=== PATIENT | female | born 1990 | race African-American/Black ===

== ENCOUNTER 2018-05-23 14:39 | Emergency (ER) | payer SELFPAY ==
[2018-05-23 14:44] VITALS: BP 109/58; PULSE 80; TEMP 98.6; BMI 28.8
--- NOTE | 2018-05-23 15:06 | PDOC ---
History of Present Illness - General Chief Complaint: Suture/Staple Removal(Here) Stated Complaint: Suture/Staple Removal(Here) Time Seen by Provider: 05/23/18 15:02 - History of Present Illness Initial Comments: 28-year-old female presents for suture removal from the left fourth finger sutures were placed over 10 days ago. She's had no complications since suture placement. 05/23/18 15:05 Past History - Past Medical History Allergies/Adverse Reactions: Allergies Allergy/AdvReac Type Severity Reaction Status Date / Time No Known Allergies Allergy Unverified 05/23/18 14:41 Home Medications: Ambulatory Orders NK [No Known Home Medication] 05/05/18 Asthma: No Cancer: No Cardiac Disorders: No COPD: No DVT: No Diabetes: No HTN: No Seizures: No Thyroid Disease: No - Immunization History Immunization Up to Date: Yes (2013) - Suicide/Smoking/Psychosocial Hx Smoking History: Never smoked Have you smoked in the past 12 months: No Information on smoking cessation initiated: No Hx Alcohol Use: No Drug/Substance Use Hx: No Substance Use Type: None Hx Substance Use Treatment: No Review of Systems - Review of Systems All Other Systems: Reviewed and Negative *Physical Exam - Vital Signs Last Vital Signs Temp Pulse Resp BP Pulse Ox 98.6 F 80 18 109/58 100 05/23/18 14:41 05/23/18 14:41 05/23/18 14:41 05/23/18 14:41 05/23/18 14:41 - Physical Exam Comments: [address] and a neurovascularly intact left fourth finger. Without gross sensorimotor deficits. In color and temperature is normal wound is well- healed. With eschar. 05/23/18 15:05 Medical Decision Making - Medical Decision Making 3 sutures were removed from the radial aspect of the tip of the left fourth finger without complications. 05/23/18 15:04 *DC/Admit/Observation/Transfer Diagnosis at time of Disposition: Visit for suture removal - Discharge Dispostion Disposition: HOME Condition at time of disposition: Stable Decision to Admit order: No - Referrals Referrals: Mary Pablo MD [Primary Care Provider] - Cresencio Booker MD [Staff Physician] - - Patient Instructions Printed Discharge Instructions: DI for Suture Removal Additional Instructions: Return to the emergency room should he develop any swelling pain redness or drainage from the area otherwise keep the area clean and dry with soap and water do not submerge it in a swimming pool sauna or hot tub until it becomes a scar. Follow-up with your primary care physician for further evaluation and treatment options or hand surgery should you need to. - Post Discharge Activity
[2018-05-27] MEDS ORDERED: IBUPROFEN 400 MG TABLET (FP) PO ONE (19:00)
== END 2018-05-23 15:08 | disposition home or self-care (01) ==
LOC: JERFT 14:39
DX: Z48.817 Encounter for surgical aftercare following surgery on the skin and subcutaneous tissue (principal); Z48.02 Encounter for removal of sutures
CPT/HCPCS: 99281-25

== ENCOUNTER 2018-12-15 18:50 | Emergency (ER) | payer BC ==
[2018-12-15 18:56] VITALS: BMI 29.7
[2018-12-15] MEDS ORDERED: SODIUM CHLORIDE 1,000 ML IV STA (19:40)
--- NOTE | 2018-12-15 19:48 | PDOC ---
Attending Attestation - HPI HPI: 12/15/18 20:17 The patient is a 28 year old female, with no significant past medical history of who presents to the emergency department with 1 day of vomiting, diarrhea and nausea accompanied with diffuse abdominal pain. Patient notes her diffuse lower abdominal pain started last night after she had pizza. The patient states she has 2 episodes of nbnb vomiting, she describes as frothy. The patient notes her daughter is sick at home and has been vomiting. The patient denies chest pain, shortness of breath, headache or dizziness. The patient denies fever, chills, nausea,or constipation. Allergies: NKDA Past surgical history:None reported Social history: 2 glasses of wine occasionally - Physicial Exam PE: 12/15/18 20:18 GENERAL: Awake, alert, and fully oriented, in no acute distress HEAD: No signs of trauma EYES: PERRLA, EOMI, sclera anicteric, conjunctiva clear ENT: Auricles normal inspection, hearing grossly normal, nares patent, oropharynx clear without exudates. Moist mucosa NECK: Normal ROM, supple, no lymphadenopathy, JVD, or masses LUNGS: Breath sounds equal, clear to auscultation bilaterally. No wheezes, and no crackles HEART: Regular rate and rhythm, normal S1 and S2, no murmurs, rubs or gallops ABDOMEN:(+) diffuse abdominal tenderness. (+) epigastric tenderness. (+) guarding, (+) minimal rebound. No masses EXTREMITIES: Normal range of motion, no edema. No clubbing or cyanosis. No cords, erythema, or tenderness NEUROLOGICAL: Cranial nerves II through XII grossly intact. Normal speech, normal gait SKIN: Warm, Dry, normal turgor, no rashes or lesions noted. <Elvira Jay - Last Filed: 12/15/18 20:17> - Resident Resident Name: Belinda Barclay - ED Attending Attestation I have performed the following: I have examined & evaluated the patient, The case was reviewed & discussed with the resident, I agree w/resident's findings & plan - Medical Decision Making 12/15/18 20:11 Pt is warm to the touch. She is not tachycardic. She has hyperactive gassy abd sounds. She has no flank pain. She has clear lungs. Pt has normal HEENT. No suprapubic tenderness. I will reeval her after 1L bolus and tylenol bolus. She hasn't had anythong for pain. She has been drinking tea all day. 12/15/18 20:57 Labs are normal; potassium is a bit low. Pt is getting hydrated. Once she is no longer nauseous or vomiting we will give 20 mEq PO potassium. 12/15/18 21:42 Pt's labs are normal; however she continues to have abd pain. So she will be sent for a dry abd/pelvis CT scan 12/15/18 21:54 Pt was given morphine for her abd discomfort; now with vomiting; she is still receiving the 1L bag saline; also we will rx with zofran 12/15/18 22:53 Referring Physician: JOVAN HAINES Patient Name: SYLVAIN HERNANDEZ THIS IS A PRELIMINARY REPORT FROM [facility] DATE OF SERVICE: 2018-12-15 22:21:31 IMAGES: [id number] EXAM: ABDOMEN \T\ PELVIS CT WITH CONTR History: 28-year-old female with diffuse abdominal pain Comparison: None Procedure: CT scan abdomen and pelvis, dated December 15, 2018 . Axial images obtained followed by coronal and sagittal reconstructions. Intravenous contrast utilized, 99 mL Omnipaque . Findings: The liver, spleen, pancreas, adrenal glands and kidneys unremarkable. Gallbladder gallbladder fossa normal in appearance. No ureteral or bladder abnormalities noted. Rectum and perirectal space unremarkable. Terminal ileum normal in appearance. Appendix not visualized. Small bowel loops are nondilated and fluid-filled. Cecum and right side of the colon also fluid-filled. No large or small bowel inflammatory changes evident. Small indeterminate mesenteric lymph nodes present within the central mesentery. Abdominal aorta/branch vessels/IVC normal configuration. Uterus anteverted in position. Follicular change bilateral ovaries. Prominent pelvic vessels noted the left side with the left gonadal vein opacified and patent. The right gonadal vein is not opacified; however does not appear enlarged or suggest adjacent inflammatory changes. The right ovary is normal in configuration. Impression: 1. Appendix not visualized. 2. Terminal ileum normal in appearance. Small bowel and right side colonic findings may suggest an enteritis. No evidence of tract obstruction or inflammatory change. 3. No adnexal masses appreciated. Prominent pelvic vasculature left-sided of the pelvis with opacification of the left gonadal vein. The right-sided gonadal vein is not opacified however this may be related to the timing of the examination. There are no additional findings to suggest gonadal vein thrombosis. 12/16/18 04:29 Pt feels better and wants to go home. <Vani Pate - Last Filed: 12/16/18 04:29> Attestations - Attestations 12/15/18 20:20 Documentation prepared by Elvira Jay, acting as center medical and lab director for Vani Pate MD <Elvira Jay - Last Filed: 12/15/18 20:17>
[2018-12-15] MEDS ORDERED: FAMOTIDINE 20 MG/50 ML IVPB 20 MG/50 ML MG IVPB ONE ×2 (19:56→20:24)
[2018-12-15] MEDS ORDERED: ACETAMINOPHEN 1000 MG/100 ML VIAL (NON FORMULARY) IVPB ONE (19:56)
--- NOTE | 2018-12-15 20:05 | PDOC ---
History of Present Illness - General Chief Complaint: Vomiting/Diarrhea Stated Complaint: ABD PAINS/VOMITTING Time Seen by Provider: 12/15/18 19:39 History Source: Patient Exam Limitations: No Limitations - History of Present Illness Initial Comments: 12/15/18 20:00 Pt is a previously healthy 28yo F presenting to ED with complaints of n/v/d x 1 day with diffuse abdominal pain. Pt states that yesterday she had pizza and afterward she started to have diffuse abdominal pain. Pt says today is when the vomiting and diarrhea started. She had 2 episodes of nbnb emesis which she describes as "froth" and nonbloody diarrhea x6-7 times. She feels lightheaded and states that the pain is in the lower abdomen and feels like a cramp. Her daughter is also sick at home with vomiting. She denies recent travel, antibiotic use, fevers, chills, chest pain, sob, vaginal bleeding, malodorous discharge, urinary symptoms, flank pain. LMP 1 month ago. PMH: none PSH: none Meds: none Allergies: nkda Social: drinks 2 glasses of wine occasionally Past History - Past Medical History Allergies/Adverse Reactions: Allergies Allergy/AdvReac Type Severity Reaction Status Date / Time No Known Allergies Allergy Unverified 12/15/18 18:55 Home Medications: Ambulatory Orders NK [No Known Home Medication] 05/05/18 Asthma: No Cancer: No Cardiac Disorders: No COPD: No DVT: No Diabetes: No HTN: No Seizures: No Thyroid Disease: No - Immunization History Immunization Up to Date: Yes (2013) - Suicide/Smoking/Psychosocial Hx Smoking History: Never smoked Have you smoked in the past 12 months: No Hx Alcohol Use: No Drug/Substance Use Hx: No Substance Use Type: None Hx Substance Use Treatment: No Review of Systems - Review of Systems Constitutional: No: Chills, Fever, Weakness HEENTM: No: Symptoms Reported Respiratory: No: Cough, Shortness of Breath Cardiac (ROS): Yes: Lightheadedness. No: Chest Pain, Palpitations, Syncope ABD/GI: Yes: Diarrhea, Nausea, Vomiting, Abdominal cramping. No: Blood Streaked Bowels, Tarry Stools : No: Burning, Dysuria, Hematuria Musculoskeletal: No: Back Pain, Muscle Pain, Muscle Weakness Integumentary: No: Symptoms Reported Neurological: No: Headache, Numbness, Tingling *Physical Exam - Vital Signs Last Vital Signs Temp Pulse Resp BP Pulse Ox 99.6 F 81 18 109/67 98 12/15/18 18:53 12/15/18 18:53 12/15/18 18:53 12/15/18 18:53 12/15/18 18:53 - Physical Exam General Appearance: Yes: Appropriately Dressed, Moderate Distress, Obese HEENT: positive: EOMI, STEVIE, Other (moist mucus membranes) Neck: positive: Trachea midline, Supple. negative: Lymphadenopathy (R), Lymphadenopathy (L) Respiratory/Chest: positive: Lungs Clear, Normal Breath Sounds. negative: Crackles, Rales, Rhonchi, Stridor Cardiovascular: positive: Regular Rhythm, Regular Rate, S1, S2. negative: Edema , JVD, Murmur Vascular Pulses: Carotid (R): 2+, Carotid (L): 2+, Dorsalis-Pedis (R): 2+, Doralis-Pedis (L): 2+ Gastrointestinal/Abdominal: positive: Normal Bowel Sounds, Soft, Tenderness ( diffuse abdominal tenderness greatest in epigastrum. ). negative: Guarding, Rebound, Hernia Musculoskeletal: negative: CVA Tenderness Extremity: positive: Normal Capillary Refill, Pelvis Stable. negative: Swelling , Calf Tenderness Integumentary: positive: Normal Color, Dry, Warm Neurologic: positive: assistant guest services manager II-XII NML intact, Fully Oriented, Alert, Normal Mood/ Affect, Normal Response, Motor Strength 5/5 Moderate Sedation - Procedure Monitoring Vital Signs: Procedure Monitoring Vital Signs Temperature 99.6 F 12/15/18 18:53 Pulse Rate 81 12/15/18 18:53 Respiratory Rate 18 12/15/18 18:53 Blood Pressure 109/67 12/15/18 18:53 O2 Sat by Pulse Oximetry (%) 98 12/15/18 18:53 ED Treatment Course - LABORATORY CBC & Chemistry Diagram: 12/15/18 19:54 12/15/18 19:54 Medical Decision Making - Medical Decision Making 12/15/18 20:04 Pt is a previously healthy 28yo F presenting to ED with complaints of n/v/d x 1 day with diffuse abdominal pain. Pt states that yesterday she had pizza and afterward she started to have diffuse abdominal pain. Pt says today is when the vomiting and diarrhea started. She had 2 episodes of nbnb emesis which she describes as "froth" and nonbloody diarrhea x6-7 times. She feels lightheaded and states that the pain is in the lower abdomen and feels like a cramp. Her daughter is also sick at home with vomiting. She denies recent travel, antibiotic use, fevers, chills, chest pain, sob, vaginal bleeding, malodorous discharge, urinary symptoms, flank pain. LMP 1 month ago. Vitals: wnl PE: diffuse abdominal tenderness greatest in epigastric 12/15/18 21:49 labs wnl. No white count. K 3.3 Pt still diffusely tender. Will give 2mg IV morphine and CTAP 12/15/18 21:58 Pt vomited after morphine. Will give zofran however pt refused. 12/15/18 22:56 CT: 1. Appendix not visualized. 2. Terminal ileum normal in appearance. Small bowel and right side colonic findings may suggest an enteritis. No evidence of tract obstruction or inflammatory change. 3. No adnexal masses appreciated. Prominent pelvic vasculature left-sided of the pelvis with opacification of the left gonadal vein. The right-sided gonadal vein is not opacified however this may be related to the timing of the examination. There are no additional findings to suggest gonadal vein thrombosis 12/15/18 23:34 Pt refusing more fluids and potassium. Wants to be DC. Will DC home. Given return precautions. *DC/Admit/Observation/Transfer Diagnosis at time of Disposition: Vomiting Qualifiers: Vomiting type: unspecified Vomiting Intractability: unspecified Nausea presence : with nausea Qualified Code(s): R11.2 - Nausea with vomiting, unspecified Diarrhea Qualifiers: Diarrhea type: unspecified type Qualified Code(s): R19.7 - Diarrhea, unspecified Abdominal pain Qualifiers: Abdominal location: unspecified location Qualified Code(s): R10.9 - Unspecified abdominal pain - Discharge Dispostion Disposition: HOME Decision to Admit order: No - Referrals - Patient Instructions Printed Discharge Instructions: Diarrhea, DI for Abdominal Pain-Adult, DI for Vomiting -- Adult Additional Instructions: You were seen in the emergency room today for abdominal pain, vomiting and diarrhea. The lab tests are normal. You most likely have a viral infection causing your symptoms. It is important to keep yourself hydrated. Please drink lots of fluids, like water or Gatorade. Try not to eat foods just yet. Stick to a liquid diet and then move to solid foods as tolerated. Try to stay away from alcohol, acidic, spicy and fried foods. Come back to the emergency room if pain gets worse and/or moves to the lower right part of your abdomen, you cannot tolerate liquids, there is blood in the vomit or stool, you develop fever or if any new concerning symptom develops. Thank you - Post Discharge Activity Forms/Work/School Notes: Back to Work
[2018-12-15 20:06] LABS: BASO % 0.5 % (0-2.0); EOS % 0.6 % (0-4.5); HEMATOCRIT 40.3 % (32.4-45.2); LYMPH % 16.9 % (8-40); MCH 30.8 pg (25.7-33.7); MCHC 34.7 g/dl (32.0-36.0); MEAN CELL VOLUME 88.7 fl (80-96); MEAN PLT VOLUME 9.1 fl (7.5-11.1); MONO % 11.4 % (3.8-10.2); NEUT % 70.6 % (42.8-82.8); PLATELET COUNT 208 K/MM3 (134-434); RBC 4.54 M/mm3 (3.60-5.2); RDW 13.7 % (11.6-15.6); WHITE BLOOD COUNT 4.1 K/mm3 (4.0-10.0)
[2018-12-15] MEDS ORDERED: ACETAMINOPHEN INJECTION 100 ML IVPB ONE (20:24)
[2018-12-15 20:31] LABS: ALBUMIN 3.6 g/dl (3.4-5.0); ALK PHOS 53 U/L (45-117); ANION GAP 9 MMOL/L (8-16); BILIRUBIN,TOTAL 0.8 mg/dL (0.2-1); BLOOD UREA NITROGEN 15 mg/dL (7-18); CALCIUM 8.8 mg/dL (8.5-10.1); CHLORIDE 107 mmol/L (98-107); CO2 21 mmol/L (21-32); CREATININE 0.7 mg/dL (0.55-1.3); GLUCOSE,RANDOM 99 mg/dL (74-106); LIPASE 129 U/L (73-393); POTASSIUM 3.3 mmol/L (3.5-5.1); SGOT/AST 15 U/L (15-37); SGPT/ALT 17 U/L (13-61); SODIUM 137 mmol/L (136-145); TOT PROT 6.7 g/dl (6.4-8.2)
[2018-12-15] MEDS ORDERED: POTASSIUM CHLORIDE TABS 20 MEQ TABLET.ER (FP) PO ONE ×2 (21:41→23:11)
[2018-12-15] MEDS ORDERED: morphine CARPU-JECT 4 MG/1 ML DISP.SYRIN IVPUSH ONE (21:42)
[2018-12-15] MEDS ORDERED: MORPHINE SULFATE 2 MG/ML VIAL ONE (21:46)
[2018-12-15] MEDS ORDERED: ONDANSETRON 4 MG/2 ML VIAL IVPB ONE (21:51)
[2018-12-15] MEDS ORDERED: ONDANSETRON 4 MG/2 ML VIAL ONE (21:52)
[2018-12-15 22:45] VITALS: BP 114/67; PULSE 85; TEMP 98.1
[2018-12-15] MEDS ORDERED: D5-NS + 20 MEQ KCL - 20 MEQ/1,000 ML INFUS.BAG IV SCH (23:00)
[2018-12-15] MEDS ORDERED: DEXTROSE 5%-LACTATED RINGERS 1,000 ML IV SCH (23:15)
== END 2018-12-15 23:45 | disposition home or self-care (01) ==
LOC: JER 18:50
PROC: 3E0337Z Introduction of Electrolytic and Water Balance Substance into Peripheral Vein, Percutaneous Approach (ICD-10-PCS; principal; 2018-12-15)
PROC: 3E033GC Introduction of Other Therapeutic Substance into Peripheral Vein, Percutaneous Approach (ICD-10-PCS; 2018-12-15)
PROC: 3E033NZ Introduction of Analgesics, Hypnotics, Sedatives into Peripheral Vein, Percutaneous Approach (ICD-10-PCS; 2018-12-15)
PROC: 3E033NZ Introduction of Analgesics, Hypnotics, Sedatives into Peripheral Vein, Percutaneous Approach (ICD-10-PCS; 2018-12-15)
DX: R10.84 Generalized abdominal pain (principal); R11.2 Nausea with vomiting, unspecified; R19.7 Diarrhea, unspecified; E87.6 Hypokalemia
CPT/HCPCS: 36415; 74177-TC; 80053; 83690; 84703; 85025; 99283-25; J0131; J7030

== ENCOUNTER 2019-04-04 19:25 | Emergency (ER) | payer SELFPAY, OTHER | END 2019-04-05 02:01 | disposition home or self-care (01) | LOC: JER 04-05 02:01 | PROC: 3E0234Z Introduction of Serum, Toxoid and Vaccine into Muscle, Percutaneous Approach (ICD-10-PCS; principal; 2019-04-04) | DX: O26.891 Other specified pregnancy related conditions, first trimester (principal); O03.4 Incomplete spontaneous abortion without complication; O02.1 Missed abortion; Z3A.00 Weeks of gestation of pregnancy not specified ==

== ENCOUNTER 2020-01-16 09:27 | Emergency (ER) | payer BC ==
[2020-01-16 09:37] VITALS: BMI 33.5
--- NOTE | 2020-01-16 10:08 | PDOC ---
History of Present Illness - General Chief Complaint: Nausea/Vomiting Stated Complaint: VOMITING Time Seen by Provider: 01/16/20 10:05 - History of Present Illness Initial Comments: 01/16/20 11:31 29 y/o F no significant medical hx, preseting with abdominal cramping pain with associated nausea and vomiting since yesterday. She reports symptoms began last night. She ate some chicken with rice and a fruit smoothie a few hours before symptoms began. Her step-daughter has been sick with similiar symptoms last weekend. she endorses nausea, vomiting, watery diarrhea, urinary hesitancy denies: vaginal bleeding, discharge, bloody stools, fevers, chills, hematuria, LMP 12/29/2019 Past History - Past Medical History Allergies/Adverse Reactions: Allergies Allergy/AdvReac Type Severity Reaction Status Date / Time No Known Allergies Allergy Unverified 01/16/20 09:37 Home Medications: Ambulatory Orders Ondansetron HCl [Zofran] 4 mg PO TID PRN #12 tablet 01/16/20 Asthma: No Cancer: No Cardiac Disorders: No COPD: No DVT: No Diabetes: No HTN: No Seizures: No Thyroid Disease: No - Immunization History Immunization Up to Date: Yes (2013) - Psycho Social/Smoking Cessation Hx Smoking History: Never smoked Have you smoked in the past 12 months: No Number of Cigarettes Smoked Daily: 3 Information on smoking cessation initiated: No Hx Alcohol Use: No Drug/Substance Use Hx: No Substance Use Type: None Hx Substance Use Treatment: No Review of Systems - Review of Systems Constitutional: No: Chills, Fever HEENTM: No: Eye Pain, Blurred Vision Respiratory: No: Cough, Shortness of Breath Cardiac (ROS): No: Chest Pain, Edema ABD/GI: Yes: Nausea, Poor Fluid Intake, Vomiting : No: Burning, Dysuria Musculoskeletal: No: Back Pain, Joint Pain Integumentary: No: Bruising, Change in Color Neurological: No: Headache, Numbness *Physical Exam - Vital Signs Last Vital Signs Temp Pulse Resp BP Pulse Ox 98.6 F 86 18 100/55 L 97 01/16/20 09:35 01/16/20 09:35 01/16/20 09:35 01/16/20 09:35 01/16/20 09:35 - Physical Exam 01/16/20 11:30 GENERAL: Awake, alert, and fully oriented, in no acute distress HEAD: No signs of trauma, normocephalic, atraumatic EYES: PERRLA, EOMI, sclera anicteric, conjunctiva clear ENT: Auricles normal inspection, hearing grossly normal, nares patent, oropharynx clear without exudates. Moist mucosa NECK: Normal ROM, supple, no lymphadenopathy, JVD, or masses LUNGS: No distress, speaks full sentences, clear to auscultation bilaterally HEART: Regular rate and rhythm, normal S1 and S2, no murmurs, rubs or gallops, peripheral pulses normal and equal bilaterally. ABDOMEN: soft, diffuse tenderness to palpation, left flank tenderness EXTREMITIES : Normal inspection, Normal range of motion, no edema. No clubbing or cyanosis NEUROLOGICAL: Cranial nerves II through XII grossly intact. Normal speech, normal gait, no focal sensorimotor deficits SKIN: Warm, Dry, normal turgor, no rashes or lesions noted ED Treatment Course - LABORATORY CBC & Chemistry Diagram: 01/16/20 10:37 01/16/20 10:37 Medical Decision Making - Medical Decision Making 01/16/20 12:16 29 y/o F no significant medical hx, presenting with abdominal cramping pain with associated nausea and vomiting since yesterday ddx: uti, vs food poisoning vs viral gastroenteritis workup cbc, cmp, ua, urine culture, meds: IV fluids, pepcid, [place] 01/16/20 12:17 01/16/20 13:40 Pt tolerating PO bacteria and high number of epithelial cells likely contaminated specimen pt is feeling better, will discharge. Discharge - Discharge Information Problems reviewed: Yes Clinical Impression/Diagnosis: Abdominal pain Qualifiers: Abdominal location: generalized Qualified Code(s): R10.84 - Generalized abdominal pain Condition: Improved Disposition: HOME - Admission No - Additional Discharge Information Prescriptions: Ondansetron HCl [Zofran] 4 mg PO TID PRN #12 tablet PRN Reason: nausea - Follow up/Referral Referrals: ON STAFF,NOT [Primary Care Provider] - - Patient Discharge Instructions Additional Instructions: you were seen in the ED for nausea and vomiting. your symptoms improved here with medications. we have sent a prescription for nausea medications to your pharmacy. take as prescribed. RETURN TO THE ER You should return to the hospital if you experience return of persistent nausea and vomiting that does not resolve and does not allow you to tolerate any food or fluids, persistent fevers for greater than 2-3 more days, increasing abdominal pain that persists despite medications, persistent diarrhea, dizziness, syncope (fainting), or for any other concerns. - Post Discharge Activity Work/Back to School Note: Back to Work
[2020-01-16] MEDS ORDERED: SODIUM CHLORIDE 0.9% 500 ML INFUS.BAG IV ONE (10:29)
[2020-01-16] MEDS ORDERED: FAMOTIDINE 20 MG/50 ML IVPB 20 MG/50 ML MG IVPB ONE ×2 (10:29→10:41)
[2020-01-16] MEDS ORDERED: MAG HYDROX/AL HYDROX/SIMETH 30 ML UNIT-DOSE CUP PO ONE (10:30)
--- NOTE | 2020-01-16 10:35 | PDOC ---
Attending Attestation - Resident Resident Name: Logan Marcelino - ED Attending Attestation I have performed the following: I have examined & evaluated the patient, The case was reviewed & discussed with the resident, I agree w/resident's findings & plan, Exceptions are as noted - HPI HPI: 01/16/20 10:34 29y F presents with vomiting/adiarrhea and abdominal pain since yesterday. Patient notes that her abdominal pain is diffuse in the lower abdomen is cramping in nature, nonradiating and seems to wax and wane. Her pain seems to worsen prior to her vomiting/diarrhea episodes. pt denies any blood in her vomit or coffe ground emesis. pt denies any blood in stool or melena. No recent travel or knwon sick contacts. ExamL: GENERAL: The patient is awake, alert, and fully oriented, Nontoxic - in no acute distress. ENT: Normal voice, Moist mucous membranes. NECK: Normal range of motion, supple LUNGS: Breath sounds equal, clear to auscultation bilaterally. No wheezes, no rhonchi, no rales. HEART: Regular rate and rhythm, normal S1 and S2 without murmur, rub or gallop. ABDOMEN: Soft, nontender, No guarding, no rebound. No CVA tenderness Differential includes gastritis, possible gastroenteritis Abdomen is soft nontender, vital signs are normal No focal tenderness to suggest diverticulitis or appendicitis We will treat supportively with fluids, Pepcid, will reassess - Medical Decision Making 01/16/20 14:05 The patient is feeling improved, tolerating oral intake repeat abdominal exam is soft and nontender labs were reviewed the patient is UA is contaminated states that she wiped however it was not a midstream catch. As she does not have any dysuria will defer treatment for UTI as I believe this is contaminated. Return precautions were discussed we will have the patient follow with PMD
[2020-01-16] MEDS ORDERED: MAG HYDROX/AL HYDROX/SIMETH 30 ML UNIT-DOSE CUP ONE (10:41)
[2020-01-16 11:04] LABS: BASO % 0.8 % (0-2.0); EOS % 0.3 % (0-4.5); HEMATOCRIT 41.9 % (32.4-45.2); HEMOGLOBIN 14.1 GM/dL (10.7-15.3); LYMPH % 22.7 % (8-40); MCH 28.7 pg (25.7-33.7); MCHC 33.5 g/dl (32.0-36.0); MEAN CELL VOLUME 85.7 fl (80-96); MONO % 9.5 % (3.8-10.2); NEUT % 66.7 % (42.8-82.8); PLATELET COUNT 264 K/MM3 (134-434); RBC 4.89 M/mm3 (3.60-5.2)
[2020-01-16 11:36] LABS: ALBUMIN 3.7 g/dl (3.4-5.0); BLOOD UREA NITROGEN 14.8 mg/dL (7-18); CALCIUM 8.4 mg/dL (8.5-10.1); CREATININE 0.7 mg/dL (0.55-1.3); TOT PROT 7.3 g/dl (6.4-8.2)
[2020-01-16 11:39] LABS: PH,URINE 5.5 (5.0-8.0); URINE APPEARANCE CLEAR; URINE BILIRUBIN NEGATIVE (NEGATIVE); URINE COLOR YELLOW; URINE GLUCOSE (UA) NEGATIVE (NEGATIVE); URINE KETONE TRACE (NEGATIVE); URINE LEUK ESTERASE NEGATIVE (NEGATIVE); URINE NITRITE NEGATIVE (NEGATIVE); URINE PROTEIN NEGATIVE (NEGATIVE)
[2020-01-16 11:41] LABS: EPI CELLS >36 /HPF (0-5/HPF); HYALINE CASTS 5 /lpf (0-8); URINE BACTERIA 3111 /hpf (NEGATIVE)
[2020-01-16 11:55] LABS: HCG,QUALITATIVE URINE Negative
[2020-01-16 14:09] VITALS: BP 113/72; PULSE 85; TEMP 97.3
== END 2020-01-16 14:01 | disposition home or self-care (01) ==
LOC: JER 09:27
PROC: 3E033GC Introduction of Other Therapeutic Substance into Peripheral Vein, Percutaneous Approach (ICD-10-PCS; principal; 2020-01-16)
DX: R10.84 Generalized abdominal pain (principal)
CPT/HCPCS: 36415; 80053; 81003; 84703; 85025; 87086; 99284-25